=== PATIENT | female | born 2000 | race Hispanic/Latino ===

== ENCOUNTER 2022-02-16 02:02 | Emergency (ER) | payer MEDICAID ==
[~2022-02-16] VITALS: Ht 149.9 cm; Wt 74.4 kg
[~2022-02-16 02:02] MED LIST: LEVO50TA4 PO; METF-444 PO
[2022-02-16] MEDS ORDERED: ONDANSETRON 4MG INJ IVP ONE (02:30)
[2022-02-16] MEDS ORDERED: 0.9%NACL 1000ML 1,000 ML IV ONE (02:30)
[2022-02-16] MEDS ORDERED: KETOROLAC 30MG VIAL (30MG/ML) IVP ONE (02:30)
[2022-02-16 02:39] LABS: BASOPHILS % (AUTO) 0.6 % (0.0-5.0); EOSINOPHILS % (AUTO) 0.2 % (0.0-8.0); HEMATOCRIT 39.8 % (36-48); LYMPHOCYTES % (AUTO) 34.9 % (21.0-51.0); MEAN CORPUSCULAR HEMOGLOBIN 32.8 pg (27.0-33.0); MEAN CORPUSCULAR HGB CONC 34.2 g/dL (32.0-36.0); MEAN CORPUSCULAR VOLUME 95.9 fL (80-100); NEUTROPHILS % (AUTO) 57.8 % (40.0-77.0); PLATELET COUNT (AUTO) 287 K/uL (130-400); RED BLOOD CELL COUNT(AUTO) 4.15 MIL/uL (4.00-5.50); RED CELL DISTRIBUTION WIDTH 13.1 % (11.0-15.5); WHITE BLOOD COUNT (AUTO) 8.8 K/uL (4.8-10.8)
[2022-02-16 02:48] LABS: CREATININE 0.8 mg/dL (0.5-1.5); POTASSIUM 3.8 mmol/L (3.5-5.1)
[2022-02-16 02:52] LABS: ALBUMIN 3.5 g/dL (3.5-5.0); TOTAL PROTEIN, SERUM 7.4 g/dL (6.0-8.3)
[2022-02-16 02:54] LABS: APPEARANCE,URINE CLEAR (CLEAR); BILIRUBIN,URINE NEGATIVE (NEGATIVE); COLOR,URINE LIGHT-YELLOW (YELLOW); GLUCOSE, URINE (UA) NEGATIVE (NEGATIVE); KETONES,URINE NEGATIVE (NEGATIVE); LEUKOCYTE ESTERASE ,URINE NEGATIVE Leu/uL (NEGATIVE); NITRATE,URINE NEGATIVE (NEGATIVE); OCCULT BLOOD,URINE SMALL (NEGATIVE); PH,URINE 5.5 (5.0-8.0); PROTEIN,URINE 10 mg/dL (NEGATIVE)
[2022-02-16 02:58] LABS: MUCUS,URINE RARE LPF (None Seen); SQUAMOUS EPITHELIAL CELL,UR FEW /HPF (0-2); WBC,URINE 0-1 /HPF (0-1)
[2022-02-16 03:03] LABS: HCG,QUALITATIVE URINE NEGATIVE (NEGATIVE)
[2022-02-16] MEDS ORDERED: PANT40TA PO (04:55)
[2022-02-16] MEDS ORDERED: ONDA4TAB10 PO (04:55)
[2022-02-16 05:00] VITALS: BP 108/63
== END 2022-02-16 05:07 | disposition home or self-care (01) ==
LOC: EDH 02:02
DX: K29.00 Acute gastritis without bleeding (principal); Z79.84 Long term (current) use of oral hypoglycemic drugs
CPT/HCPCS: 99284; 74176; 96374; 76705; 96361; 96375; 80053; 83690; 85025; 81001; 81025; 36415; J2405; J1885